=== PATIENT | male | born 1990 | race Caucasian/White ===

== ENCOUNTER 2017-05-17 15:48 | Emergency (ER) | payer BC, OTHER ==
--- NOTE | 2017-05-17 15:59 | ED Physician Documentation ---
General Adult - HISTORIAN Historian: patient - HPI Stated Complaint: laceration Chief Complaint: Laceration/Recheck/Suture Onset: hours (1) Timing: still present Severity: mild Further Comments: yes (cut his hand on a work shelf . He denies any pain . Sensation + ROM + no decreased feeling or movement) - ROS CONST: no problems EYES/ENT: none CVS/RESP: none NEURO/PSYCH: denies: headache, fainting, dizziness, tingling, numbness - PAST HX Past History: none, kidney stones Surgeries/Procedures: none Immunizations: tetanus (not sure last ) Allergies/Adverse Reactions: Allergies Allergy/AdvReac Type Severity Reaction Status Date / Time No Known Drug Allergies Allergy Unverified 06/03/13 10:23 - SOCIAL HX Smoking History: non-smoker Alcohol Use: none Drug Use: none - FAMILY HX Family History: No - VITAL SIGNS Vital Signs: Vital Signs Temp Pulse Resp BP Pulse Ox 98.6 F 103 H 19 140/88 97 05/17/17 15:50 05/17/17 15:50 05/17/17 15:50 05/17/17 15:50 05/17/17 15:50 - REVIEWED ASSESSMENTS Nursing Assessment Reviewed: Yes Vitals Reviewed: Yes ED Results Lab/Radiology - Orders Orders: ED Orders Category Date Time Status Diph,Pertuss(Acell),Tet Vac/Pf [Adacel] Med 05/17/17 16:57 Discontinued 0.5 ml IM .ONCE ONE General Adult Physical Exam - PHYSICAL EXAM GENERAL APPEARANCE: no distress EENT: eye inspection normal NECK: normal inspection RESPIRATORY: no resp distress, chest non-tender, breath sounds normal CVS: reg rate & rhythm, heart sounds normal, equal pulses ABDOMEN: soft BACK: normal inspection SKIN: warm/dry, normal color, other (right hand middle finger laceration over Metacarpal joint FROM pulse and sensation normal ) EXTREMITIES: non-tender NEURO: oriented X3, CN's nml as tested, motor nml, sensation nml Discharge Clincal Impression: Laceration Referrals: Rachelle Gómez MD [Primary Care Provider] - 2 Days Comments: Keep area clean and dry Do not move finger keep immoblized Tylenol or Ibuprofen for pain Return to PCP or ER for any concerns Condition: Stable Disposition: 01 HOME, SELF-CARE Decision to Admit: NO Date of Decison to Admit: 05/17/17 Decision Time: 16:57
[2017-05-17 16:26] VITALS: BP 140/88
[2017-05-17] MEDS: DIPH,PERTUSS(ACELL),TET VAC/PF 0.5 ML DISP.SYRIN IM ONE (17:08)
== END 2017-05-17 17:15 | disposition home or self-care (01) ==
LOC: ED 15:48
DX: S61.212A Laceration without foreign body of right middle finger without damage to nail, initial encounter (principal); Z23 Encounter for immunization; W45.8XXA Other foreign body or object entering through skin, initial encounter; Y93.9 Activity, unspecified; Y92.9 Unspecified place or not applicable; Y99.0 Civilian activity done for income or pay
CPT/HCPCS: 90471; 90715; 99283